=== PATIENT | male | born 1930 | race Caucasian/White ===

== ENCOUNTER 2019-08-27 13:06 | Emergency (ER) | payer OTHER ==
[~2019-08-27] VITALS: Ht 162.6 cm; Wt 59.0 kg
[2019-08-27 15:32] VITALS: BP 143/64
== END 2019-08-27 15:32 | disposition home or self-care (01) ==
LOC: ED 13:06
DX: M47.892 Other spondylosis, cervical region (principal); M62.838 Other muscle spasm
CPT/HCPCS: J1885